=== PATIENT | female | born 1985 | race Two or more races ===

== ENCOUNTER 2024-07-13 08:00 | Inpatient (IN) | payer OTHER ==
[~2024-07-13] VITALS: Ht 154.9 cm; Wt 63.5 kg
[2024-07-13 09:15] VITALS: BP 125/82
[2024-07-13 09:37] LABS: HEMATOCRIT 31.7 % (36.0-45.00); HEMOGLOBIN 9.7 g/dL (12.0-15.00); MEAN CORPUSCULAR HEMOGLOBIN 19.6 pg (27.00-32.0); MEAN CORPUSCULAR HGB CONC 30.7 g/dl (32.0-36.0); PLATELET COUNT 300 K/uL (150-450); RED BLOOD COUNT 4.96 M/uL (4.00-6.00)
[2024-07-13 09:45] LABS: PH,URINE 5.5 (5.0-8.0); URINE APPEARANCE Clear; URINE BILIRRUBIN Negative (NEGATIVE); URINE BLOOD Negative; URINE COLOR Yellow; URINE GLUCOSE Negative (NEGATIVE); URINE KETONE Negative (NEGATIVE); URINE LEUKOCYTE Negative; URINE NITRATE Negative; URINE PROTEIN Negative (NEGATIVE); URINE UROBILINOGEN 0.2 E.U./dl
[2024-07-13 09:50] LABS: URINE BACTERIA 411.9 uL (0.0-1933); URINE EPITHELIAL CELLS 36.7 uL (0.0-38.8); URINE WBC 3.8 uL (0.0-23.2)
[2024-07-13 09:52] LABS: URINE RBC 1.8 uL (0.0-20.8)
[2024-07-13 10:23] LABS: INR 1.06; PARTIAL THROMBOPLASTIN TIME 26.8 SECONDS (22.0-34.0); PROTHROMBIN TIME 11.5 SECONDS (9.0-11.5)
[2024-07-13 10:51] LABS: ALBUMIN 3.6 gm/dL (3.4-5.0); BILIRUBIN TOTAL 0.23 mg/dL (0.3-1.2); CALCIUM 8.8 mg/dL (8.5-10.1); CREATININE SERUM 0.57 mg/dL (0.55-1.02); GFR 117.47; GLOBULINA 3.9 G/DL (2.4-3.5); POTASSIUM 4.05 mEq/L (3.5-5.1); TOTAL PROTEIN 7.5 gm/dL (6.4-8.2)
[2024-07-13 11:33] LABS: RH NEGATIVE
[2024-07-22] MEDS ORDERED: CEFOXITIN SODIUM 2,000 MG VIAL IV ONE (15:00)
[2024-07-22] MEDS ORDERED: POVIDONE-IODINE 118 ML BOTT TOP ONE (15:00)
[2024-07-22] MEDS ORDERED: KETOROLAC TROMETHAMINE 60 MG VIAL IM STA (16:33)
[2024-07-22] MEDS ORDERED: RINGERS SOLUTION,LACTATED 1,000 ML IV SCH (16:45)
[2024-07-22] MEDS ORDERED: MEPERIDINE HCL/PF 50 MG/ML VIAL IM PRN (16:45)
[2024-07-22] MEDS ORDERED: PROMETHAZINE HCL 25 MG/ML AMPUL IM PRN (16:45)
[2024-07-22] MEDS ORDERED: MORPHINE SULFATE 4 MG/ML VIAL IV ONE (17:15)
[2024-07-22] MEDS ORDERED: KETOROLAC TROMETHAMINE 30 MG VIAL IV ONE (18:30)
[2024-07-22 21:04] LABS: HEMATOCRIT 32.3 % (36.0-45.00); MEAN CELL VOLUME 70.1 fL (80.00-100.00); MEAN CORPUSCULAR HEMOGLOBIN 21.6 pg (27.00-32.0); MEAN CORPUSCULAR HGB CONC 30.9 g/dl (32.0-36.0); PLATELET COUNT 220 K/uL (150-450); RED BLOOD COUNT 4.61 M/uL (4.00-6.00)
[2024-07-22 21:59] VITALS: BP 125/82
[2024-07-23 00:50] VITALS: BP 109/71
[2024-07-23] MEDS ORDERED: IBUprofen 600 MG TABLET PO SCH (09:12)
[2024-07-23] MEDS ORDERED: IBUprofen 400 MG TABLET PO ONE (09:15)
[2024-07-23 09:18] VITALS: BP 119/78
[2024-07-23 16:32] VITALS: BP 122/85
[2024-07-23] MEDS ORDERED: BISACODYL 10 MG/SUPP.RECT SUPP.RECT RECTAL PRN (19:15)
[2024-07-23 21:09] VITALS: BP 113/76
[2024-07-24] VITALS: BP 124/80
[2024-07-24] MEDS ORDERED: KETOROLAC TROMETHAMINE 60 MG VIAL IM ONE (01:15)
[2024-07-24 09:51] VITALS: BP 118/81
[2024-07-24 17:07] VITALS: BP 109/77
[2024-07-25] VITALS: BP 112/70
[2024-07-25 08:24] VITALS: BP 120/67
== END 2024-07-25 12:11 | disposition home or self-care (01) | DRG 743 ==
LOC: OB/GYN 07-22 07:00 → O/R 07-22 11:58 → OB/GYN 07-22 18:08
PROVIDERS: Obstetrics & Gynecology; ADMIT Obstetrics & Gynecology; ATTEND Obstetrics & Gynecology
PROC: 0UT70ZZ Resection of Bilateral Fallopian Tubes, Open Approach (ICD-10-PCS; 2024-07-22)
PROC: 0UT90ZZ Resection of Uterus, Open Approach (ICD-10-PCS; principal; 2024-07-22 07:00)
DX: D25.2 Subserosal leiomyoma of uterus (principal); N72 Inflammatory disease of cervix uteri; N93.9 Abnormal uterine and vaginal bleeding, unspecified; Z20.822 Contact with and (suspected) exposure to COVID-19; Z90.710 Acquired absence of both cervix and uterus

== ENCOUNTER 2024-07-20 14:55 | Outpatient (CLI) | payer OTHER ==
[2024-07-20 15:24] LABS: HEMATOCRIT 34.7 % (36.0-45.00); HEMOGLOBIN 10.9 g/dL (12.0-15.00); MEAN CORPUSCULAR HEMOGLOBIN 21.7 pg (27.00-32.0); MEAN CORPUSCULAR HGB CONC 31.4 g/dl (32.0-36.0); PLATELET COUNT 262 K/uL (150-450); RED BLOOD COUNT 5.02 M/uL (4.00-6.00)
== END 2024-07-20 14:56 | disposition home or self-care (01) ==
LOC: LAB 14:55
PROVIDERS: ATTEND Internal Medicine
DX: D64.9 Anemia, unspecified (principal)